=== PATIENT | male | born 1955 | race Caucasian/White ===

== ENCOUNTER 2018-06-28 08:49 | Emergency (ER) | payer BC ==
[2018-06-28 09:29] VITALS: BP 148/77
--- NOTE | 2018-06-28 10:48 | UC ---
Respiratory Complaint HPI - HPI Summary HPI Summary: Pt presents with c/o cough, wheezing, and sob X 3 days. - History of Current Complaint Chief Complaint: UCGeneralIllness Stated Complaint: ST/COUGH Time Seen by Provider: 06/28/18 10:24 Hx Obtained From: Patient Onset/Duration: Sudden Onset, Lasting Days, Still Present Timing: Intermittent Episodes Severity Initially: Moderate Severity Currently: Moderate Pain Intensity: 7 Character: Cough: Nonproductive Aggravating Factors: Exertion, Deep Breaths, Recumbent Position Alleviating Factors: Nothing Associated Signs And Symptoms: Positive: Chills, Wheezing, URI, Nasal Congestion - Risk Factors Pulmonary Embolism Risk Factors: Negative Cardiac Risk Factors: Hypertension, Elevated Lipids Pseudomonas Risk Factors: Negative Tuberculosis Risk Factors: Negative - Allergies/Home Medications Allergies/Adverse Reactions: Allergies Allergy/AdvReac Type Severity Reaction Status Date / Time bacitracin Allergy Intermediate Rash Verified 06/28/18 10:58 neomycin Allergy Intermediate Rash Verified 06/28/18 10:58 seasonal allergy Allergy Runny Nose Uncoded 06/28/18 09:29 Home Medications: Home Medications Apixaban* [Eliquis*] 2.5 mg PO BID 06/28/18 [History Confirmed 06/28/18] Tadalafil [Cialis] 5 mg PO DAILY 06/28/18 [History Confirmed 06/28/18] PMH/Surg Hx/FS Hx/Imm Hx Previously Healthy: Yes Endocrine History: Dyslipidemia Cardiovascular History: Hypertension - Surgical History Surgical History: Yes Surgery Procedure, Year, and Place: 1993 L3-L4 LAMINECTOMY, [facility]. 2007 RIGHT FOOT BUNIONECTOMY, [place]. 2008 LEFT KNEE TOTAL REPLACEMENT, [place]. 2010 LEFT SHOULDER BONE SPUR REMOVED, [place]. - Family History Known Family History: Positive: Cardiac Disease, Hypertension, Other - cancer, multiple myeloma - Social History Occupation: Retired Lives: With Family Alcohol Use: Weekly Alcohol Amount: 10 Substance Use Type: None Smoking Status (MU): Former Smoker Type: Cigarettes Amount Used/How Often: 1 -1 1/2 PPD Length of Time of Smoking/Using Tobacco: 18 YEARS Have You Smoked in the Last Year: No When Did the Patient Quit Smoking/Using Tobacco: 1982 Review of Systems All Other Systems Reviewed And Are Negative: Yes Constitutional: Positive: Chills, Fatigue Skin: Positive: Negative Eyes: Positive: Negative ENT: Positive: Sinus Congestion Respiratory: Positive: Shortness Of Breath, Cough Cardiovascular: Positive: Negative Gastrointestinal: Positive: Negative Genitourinary: Positive: Negative Motor: Positive: Negative Neurovascular: Positive: Negative Musculoskeletal: Positive: Negative Neurological: Positive: Negative Psychological: Positive: Negative Is Patient Immunocompromised?: No Physical Exam Triage Information Reviewed: Yes Appearance: Ill-Appearing Vital Signs: Initial Vital Signs Temp 98.5 F 06/28/18 09:25 Pulse 87 06/28/18 09:25 Resp 16 06/28/18 09:25 BP 148/77 06/28/18 09:25 Pulse Ox 97 06/28/18 09:25 Vital Signs Reviewed: Yes Eye Exam: Normal ENT: Positive: Nasal congestion Dental Exam: Normal Neck exam: Normal Respiratory: Positive: Decreased breath sounds Cardiovascular Exam: Normal Musculoskeletal Exam: Normal Neurological Exam: Normal Psychological Exam: Normal Skin Exam: Normal UC Diagnostic Evaluation - Laboratory O2 Sat by Pulse Oximetry: 97 - Radiology Radiology Interpretation Completed By: Radiologist Summary of Radiographic Findings: IMPRESSION: HYPERINFLATION, CONSISTENT WITH COPD. NO ACTIVE CARDIOPULMONARY DISEASE. Respiratory Course/Dx - Differential Dx/Diagnosis Differential Diagnosis/HQI/PQRI: Bronchitis, Influenza Provider Diagnosis: Bronchitis, Bronchospasm with bronchitis, acute Discharge - Sign-Out/Discharge Documenting (check all that apply): Patient Departure All imaging exams completed and their final reports reviewed: Yes - Discharge Plan Condition: Stable Disposition: HOME Prescriptions: Albuterol HFA INHALER* [Ventolin HFA Inhaler*] 1 - 2 puff INH Q6H PRN #1 mdi PRN Reason: Sob/Wheezing Benzonatate CAP* [Tessalon 100 MG CAP*] 100 mg PO Q8H PRN #30 cap PRN Reason: Cough predniSONE TAB* [Deltasone 10 MG TAB*] 30 mg PO DAILY #12 tab Patient Education Materials: Acute Bronchitis (ED), Bronchospasm (ED) Referrals: Adolfo Melendez MD [Primary Care Provider] - As Soon As Possible - Billing Disposition and Condition Condition: STABLE Disposition: Home - Attestation Statements Provider Attestation: . Per institutional requirements, I have reviewed the chart, however, I was not consulted specifically or made aware of this patient by the midlevel provider. I did not personally evaluate, interact with , or disposition this patient.
== END 2018-06-28 11:04 | disposition home or self-care (01) ==
LOC: UCCORT 08:49
DX: J20.9 Acute bronchitis, unspecified (principal); Z88.1 Allergy status to other antibiotic agents; Z87.891 Personal history of nicotine dependence
CPT/HCPCS: 71046; 99212; G0463

== ENCOUNTER 2019-02-13 14:22 | Emergency (ER) | payer BC ==
[2019-02-13 14:43] VITALS: BP 114/71
--- NOTE | 2019-02-13 15:09 | UC ---
UC General HPI - HPI Summary HPI Summary: L ear pain x 2 days. States hurts to touch the little bump(pointing to his tragus). Denies fever, drainage and swimming. - History of Current Complaint Chief Complaint: UCEar Stated Complaint: EAR PAIN Time Seen by Provider: 02/13/19 14:59 Hx Obtained From: Patient Onset/Duration: Gradual Onset Timing: Constant Pain Intensity: 6 Associated Signs & Symptoms: Negative: Fever, Headache - Allergy/Home Medications Allergies/Adverse Reactions: Allergies Allergy/AdvReac Type Severity Reaction Status Date / Time bacitracin Allergy Intermediate Rash Verified 02/13/19 14:44 neomycin Allergy Intermediate Rash Verified 02/13/19 14:44 seasonal allergy Allergy Runny Nose Uncoded 02/13/19 14:44 PMH/Surg Hx/FS Hx/Imm Hx Endocrine History: Dyslipidemia Cardiovascular History: Hypertension - Surgical History Surgical History: Yes Surgery Procedure, Year, and Place: 1993 L3-L4 LAMINECTOMY, [facility];. 2007 RIGHT [place]OMY, [place] ;. 2008 LEFT KNEE TOTAL REPLACEMENT, [place];. 2010 LEFT SHOULDER BONE SPUR REMOVED, [place];. RIGHT FOOT BUNIONECTOMY SCREW REMOVED;. RIGHT FOOT GREAT TOE FUSION - DR. DIAZ;. - Family History Known Family History: Positive: Cardiac Disease, Hypertension, Other - cancer, multiple myeloma - Social History Alcohol Use: Weekly Alcohol Amount: 10 Substance Use Type: None Smoking Status (MU): Former Smoker Type: Cigarettes Amount Used/How Often: 1 -1 1/2 PPD Length of Time of Smoking/Using Tobacco: 18 YEARS Have You Smoked in the Last Year: No When Did the Patient Quit Smoking/Using Tobacco: 1982 Review of Systems All Other Systems Reviewed And Are Negative: No Constitutional: Negative: Fever, Chills Eyes: Negative: Drainage ENT: Positive: Ear Ache - L. Negative: Sore Throat, Sinus Congestion Neurological: Negative: Headache Physical Exam Triage Information Reviewed: Yes Appearance: Well-Appearing Vital Signs: Initial Vital Signs Temp 98.6 F 02/13/19 14:41 Pulse 71 02/13/19 14:41 Resp 14 02/13/19 14:41 BP 114/71 02/13/19 14:41 Pulse Ox 99 02/13/19 14:41 Vital Signs Reviewed: Yes Eyes: Positive: Conjunctiva Clear ENT: Positive: Pharynx normal, TMs normal - R, L not visible. R canal is clear, L canal is swollen and red plus some dry flakes making TM not visible. Tug of L auricle and pressure on tragus is painful. L auricle has slight swelling and mild erythema., Other - No auricular adenopathy or mastoid tenderness.. Negative: Nasal congestion, Nasal drainage Neck: Positive: Supple, Nontender, No Lymphadenopathy Respiratory: Positive: No respiratory distress Musculoskeletal: Positive: ROM Intact Neurological: Positive: Alert Psychological: Positive: Age Appropriate Behavior Skin Exam: Normal Course/Dx - Differential Dx - Multi-Symptom Differential Diagnoses: Other - non toxic. L OE on exam and L auricular skin infection. with tx with topical and po antibiotics plus close f/u with his ent. pt agrees he will go to the ER for any worsening. - Diagnoses Provider Diagnosis: Otitis externa, Cellulitis Discharge - Sign-Out/Discharge Documenting (check all that apply): Patient Departure All imaging exams completed and their final reports reviewed: No Studies - Discharge Plan Condition: Stable Disposition: HOME Prescriptions: Cephalexin CAP* [Keflex CAP*] 500 mg PO TID 7 Days #21 cap Ciproflox/Dexameth OTIC.SUSP* [Ciprodex OTIC.SUSP*] 4 drop .SEE ORDER BID 7 Days #1 btl Patient Education Materials: Cellulitis (DC), Otitis Externa (ED) Referrals: Kai Dawkins MD [Medical Doctor] - 2 Days Additional Instructions: TAKE A PROBIOTIC SUCH CULTURELLE DAILY FOR 1-2 WEEKS. - Billing Disposition and Condition Condition: STABLE Disposition: Home
== END 2019-02-13 15:17 | disposition home or self-care (01) ==
LOC: UCCORT 14:22
DX: H60.92 Unspecified otitis externa, left ear (principal); H60.12 Cellulitis of left external ear; I10 Essential (primary) hypertension; Z88.1 Allergy status to other antibiotic agents; F17.210 Nicotine dependence, cigarettes, uncomplicated
CPT/HCPCS: 99212; G0463